=== PATIENT | male | born 2005 | race Caucasian/White ===

== ENCOUNTER 2025-01-26 14:01 | Emergency (ER) | payer OTHER, SELFPAY ==
[2025-01-26 14:05] VITALS: PULSE 78; TEMP 37.1; O2SAT 98; BMI 33.9
[2025-01-26 14:09] VITALS: BP 160/98
--- NOTE | 2025-01-26 14:17 | ED.EXTPRO1 ---
HPI - Extremity Problem General Chief complaint: Extremity Problem, Nontraumatic Stated complaint: LOWER EXTREMITY PAIN Time Seen by Provider: 01/26/25 14:12 Source: patient Mode of arrival: walk-in History of Present Illness HPI Narrative: 19 year old male presents to the ED for pain to his left upper posterior leg. Onset was 4-5 weeks ago. It starts in the left buttock. Denies fever, chills, injury, weakness, urinary sx. Denies pain to his lower back. Denies saddle anesthesia, change in bowel and/or bladder control. He was evaluated at an urgent care one week after the onset. He has been taking motrin and a muscle relaxer without relief. He is accompanied by family for a ride home. Related Data Previous Rx's ?Medication ?Instructions ?Recorded hydrocodone 5 mg-acetaminophen 325 1 tab PO Q8H PRN pain 3 days #9 01/26/25 mg tablet tabs prednisone 10 mg tablet See Rx Instructions .Route 01/26/25 .COMPLEX #30 tabs Allergies Allergy/AdvReac Type Severity Reaction Status Date / Time No Known Drug Allergies Allergy Verified 01/26/25 14:08 Review of Systems ROS Constitutional Denies: fever or chills Respiratory Denies: shortness of breath Gastrointestinal Denies: abdominal pain Genitourinary Denies: painful urination, urinary frequency or blood in urine Musculoskeletal Reports: extremity pain; Denies: back pain, neck pain or joint pain Neurological Denies: headache, numbness in extremities, weakness in extremities, lack of coordination or dizziness PFSH PFSH Social History Little interest or pleasure in doing things: not at all Feeling down, depressed, or hopeless: not at all Exam Constitutional Vital Signs, click to edit/add: Last Vital Signs Temp 98.7 F 01/26/25 14:05 Pulse 78 01/26/25 14:05 Resp 16 01/26/25 14:05 BP 160/98 H 01/26/25 14:09 Pulse Ox 98 01/26/25 14:05 O2 Del Method Room Air 01/26/25 14:05 Common normals: no apparent distress General appearance: cooperative Eye Common normals: conjunctivae normal Neck & C-Spine Common normals: supple Respiratory Common normals: normal respiratory effort Effort & inspection: able to speak in complete sentences and symmetric chest movement Cardio Common normals: regular rate Peripheral pulses: posterior tibial pulses present and dorsalis pedis pulses present Back & Pelvis Thoracic spine/upper back: normal to inspection; no thoracic spinal tenderness and no paraspinal muscle tenderness Lumbar spine/lower back: normal to inspection and paraspinal muscle tenderness; no lumbar spinal tenderness Pelvis: buttock abnormal Buttock abnormal laterality: left Left buttock abnormal details: tenderness Other: Tenderness left upper posterior leg. No swelling, erythema, or deformity. Neuro Common normals: oriented x3, moves all extremities and no focal motor deficits Sensorium/orientation: awake and alert Speech: speech normal Gait (neuro): normal gait Course Vital Signs Vital signs: Vital Signs Temperature 98.7 F 01/26/25 14:05 Pulse Rate 78 01/26/25 14:05 Respiratory Rate 16 01/26/25 14:05 Pulse Oximetry 98 01/26/25 14:05 Oxygen Delivery Method Room Air 01/26/25 14:05 Temperature 98.7 F 01/26/25 14:05 Pulse Rate 78 01/26/25 14:05 Respiratory Rate 16 01/26/25 14:05 Blood Pressure 160/98 H 01/26/25 14:09 Pulse Oximetry 98 01/26/25 14:05 Oxygen Delivery Method Room Air 01/26/25 14:05 MDM - Extremity (Nontraumatic) MDM Narrative Medical decision making narrative: X-ray showed mild disc space narrowing L5-S1; no acute fracture. Findings were discussed with the patient. He was medicated for his discomfort here with some improvement. OARRS was reviewed. Prescriptions were provided for norco and prednisone. Follow up with pcp for a recheck, further evaluation and treatment. Medical Records Attestation: I reviewed the patient's medical records. Imaging Data XR: Attestation: I have reviewed the pertinent imaging results. Radiologist's impression: XR lumbar spine: Mild disc space narrowing L5-S1. No acute fracture. Discharge Plan Discharge Chief Complaint: Extremity Problem, Nontraumatic Clinical Impression: Sciatica of left side Patient Disposition: Home, Self-Care Time of Disposition Decision: 16:28 Condition: Good Mode of Transportation: Private Vehicle Prescriptions / Home Meds: New prednisone 10 mg tablet See Rx Instructions .ROUTE .COMPLEX Qty: 30 0RF Rx Instructions: Take 5 tablets on days 1-2, 4 tabs on days 3-4, 3 tabs on days 5-6, 2 tabs on days 7-8, 1 tab on days 9-10. hydrocodone-acetaminophen 5-325 mg tablet 1 tab PO Q8H PRN (Reason: pain) 3 Days Qty: 9 0RF Print Language: Pashto Instructions: Sciatica (ED), Leg Pain (ED) Additional Instructions: Return to the ER for worsening symptoms. Referrals: JEAN CLAUDE GILL [Physician] - 1 week Discharge Date/Time: 01/26/25 16:50
[2025-01-26] MEDS: HYDROCODONE/ACET 5-325 MG TABLET 1 TAB PO (14:29)
[2025-01-26] MEDS: PREDNISONE 20 MG TABLET 40 MG PO (14:29)
[2025-01-26] MEDS: TIZANIDINE HCL 4 MG TABLET PO (14:29)
[2025-01-26 16:49] VITALS: BP 146/92; PULSE 89; O2SAT 98
== END 2025-01-26 16:50 | disposition home or self-care (01) ==
PROVIDERS: Emergency Provider Emergency Medicine
DX: M54.32 Sciatica, left side (principal)
CPT/HCPCS: 72100; 99283; J7512